=== PATIENT | male | born 1950 | race Caucasian/White ===

== ENCOUNTER 2020-02-20 10:37 | Outpatient (CLI) | payer OTHER ==
[~2020-02-20 10:37] MED LIST: DIURIL250 MG/5 M PO; KETO10TA2 PO; LOTREL 10-20 MG1 CAP PO; NORFLEX100MG PO
== END 2020-02-20 10:38 | disposition home or self-care (01) ==
LOC: RAD 10:37
PROVIDERS: ATTEND Orthopaedic Surgery
DX: M75.101 Unspecified rotator cuff tear or rupture of right shoulder, not specified as traumatic (principal); M25.511 Pain in right shoulder

== ENCOUNTER 2020-03-24 06:16 | Outpatient (CLI) | payer OTHER | END 2020-03-24 06:31 | disposition home or self-care (01) | LOC: LAB 06:16 | PROVIDERS: ATTEND Orthopaedic Surgery | DX: E21.2 Other hyperparathyroidism (principal); E55.9 Vitamin D deficiency, unspecified; M85.88 Other specified disorders of bone density and structure, other site; E88.89 Other specified metabolic disorders; M81.8 Other osteoporosis without current pathological fracture; E56.1 Deficiency of vitamin K ==

== ENCOUNTER → 2020-06-24 10:13 | Outpatient (CLI) | payer OTHER | END | disposition home or self-care (01) | LOC: LAB 10:13 | PROVIDERS: ATTEND Emergency Medicine Pediatric Emergency Medicine | DX: Z03.818 Encounter for observation for suspected exposure to other biological agents ruled out (principal) ==

== ENCOUNTER 2020-07-02 16:28 | Outpatient (CLI) | payer OTHER | END 2020-07-02 16:45 | disposition home or self-care (01) | LOC: RAD 16:28 | PROVIDERS: ATTEND Internal Medicine Cardiovascular Disease | DX: I10 Essential (primary) hypertension (principal) ==

== ENCOUNTER → 2020-12-08 06:31 | Outpatient (CLI) | payer OTHER | END | disposition home or self-care (01) | LOC: LAB 06:31 | DX: R05 Cough (principal); Z20.828 Contact with and (suspected) exposure to other viral communicable diseases; Z20.822 Contact with and (suspected) exposure to COVID-19; Z11.52 Encounter for screening for COVID-19; Z86.16 Personal history of COVID-19 ==

== ENCOUNTER 2022-05-06 14:53 | Outpatient (CLI) | payer OTHER | END 2022-05-06 15:02 | disposition home or self-care (01) | LOC: RAD 14:53 | DX: E11.9 Type 2 diabetes mellitus without complications (principal); I10 Essential (primary) hypertension; I70.0 Atherosclerosis of aorta ==

== ENCOUNTER 2024-06-25 10:08 | Outpatient (CLI) | payer OTHER | END 2024-06-25 10:10 | disposition home or self-care (01) | LOC: NUCLEAR 10:08 | DX: I65.23 Occlusion and stenosis of bilateral carotid arteries (principal); I50.9 Heart failure, unspecified; I11.9 Hypertensive heart disease without heart failure ==